=== PATIENT | male | born 1955 | race Caucasian/White ===

== ENCOUNTER 2021-01-08 08:10 | Emergency (ER) | payer OTHER ==
[2021-01-08] MEDS ORDERED: NA CHLORIDE 0.9% 1,000 ML ONE (09:13)
[2021-01-08 09:19] LABS: Absolute Lymphocytes (CBC) 2.1 K/uL (0.7-4.9); Basophils % 1.2 % (0-1.3); Hematocrit 44.3 % (39.6-49.0); Lymphocytes % 17.3 % (15.3-44.8)
[2021-01-08 09:25] LABS: Protime INR 1.13
[2021-01-08] MEDS ORDERED: ONDANSETRON 4 MG/2 ML VIAL ONE (09:31)
--- NOTE | 2021-01-08 09:34 | RAD REPORT ---
EXAM DESCRIPTION: Jonathan Single View01/08/2021 9:22 am CLINICAL HISTORY: Cough COMPARISON: 2019 FINDINGS: The lungs appear clear of acute infiltrate. The heart is normal size IMPRESSION: No acute abnormalities displayed
[2021-01-08 09:38] LABS: ALT/SGPT 65 U/L (12-78); AST/SGOT 47 U/L (15-37); Alkaline Phosphatase 86 U/L (45-117); BUN Blood Urea Nitrogen 18 mg/dL (7-18); Bicarbonate 25 mmol/L (21-32); Bilirubin Direct 0.3 mg/dL (0-0.2); Bilirubin Total 1.4 mg/dL (0.2-1.0); Glucose Level 153 mg/dL (74-106); Lipase 90 U/L (73-393); Magnesium 2.1 mg/dL (1.8-2.4); NT PRO-BNP 184 pg/mL (<125); Potassium 4.1 mmol/L (3.5-5.1); Protein, Total 8.1 g/dL (6.4-8.2); Sodium Level 137 mmol/L (136-145); Troponin (Emerg Dept Use Only) < 0.02 ng/mL (0.0-0.045)
[2021-01-08 10:36] LABS: SARS-COV-2 RT PCR NEGATIVE (NEGATIVE)
--- NOTE | 2021-01-08 11:01 | ER ---
Nurse's Notes [facility] Name: Felton Block Age: 65 yrs Sex: Male : 1955 Arrival Date: 01/08/2021 Time: 08:12 Bed 2 Private MD: Daryl Jacobo Diagnosis: Zoster without complications;Weakness Presentation: 01/08 08:18 Chief complaint: N/V/D, fatigue, chills, and rash on face x 3 days. Coronavirus screen: hb Client presents with at least one sign or symptom that may indicate coronavirus-19. Standard/surgical mask placed on the client. Provider contacted for isolation considerations. Ebola Screen: No symptoms or risks identified at this time. Initial Sepsis Screen: Does the patient meet any 2 criteria? No. Patient's initial sepsis screen is negative. Does the patient have a suspected source of infection? No. Patient's initial sepsis screen is negative. Risk Assessment: Do you want to hurt yourself or someone else? Patient reports no desire to harm self or others. Onset of symptoms was January 06, 2021. 08:18 Method Of Arrival: Ambulatory 08:18 Acuity: ANDREI 3 hb Historical: - Allergies: 08:20 No Known Allergies; hb - Immunization history:: Adult Immunizations up to date. - Social history:: Smoking status: Patient denies any tobacco usage or history of. Screenin:25 Abuse screen: Denies threats or abuse. Denies injuries from another. Nutritional sv screening: No deficits noted. Tuberculosis screening: No symptoms or risk factors identified. Fall Risk None identified. Assessment: 09:00 General: Appears in no apparent distress. comfortable, well groomed, well developed, sv Behavior is calm, cooperative, appropriate for age. General: Reports chills for 2-3 days, feeling ill for 2-3 days, fatigue for 2-3 days. Pain: Denies pain. Neuro: Level of Consciousness is awake, alert, obeys commands, Oriented to person, place, time, situation, Gait is steady, Speech is normal. Cardiovascular: Patient's skin is warm and dry. Rhythm is sinus rhythm. Respiratory: Airway is patent Respiratory effort is even, unlabored, Respiratory pattern is regular, symmetrical. GI: Abdomen is round Reports intolerance of food, nausea, vomiting. Derm: Skin is intact, Skin is pink, warm \T\ dry. Rash noted that is red, raised, vesicular, on forehead Pt reports that he got referred to a neurologist but hasn't been able to see one just yet. 10:20 Reassessment: Patient appears in no apparent distress at this time. Patient and/or sv family updated on plan of care and expected duration. Pain level reassessed. Patient is alert, oriented x 3, equal unlabored respirations, skin warm/dry/pink. 11:22 Reassessment: Patient appears in no apparent distress at this time. Patient and/or sv family updated on plan of care and expected duration. Pain level reassessed. Patient is alert, oriented x 3, equal unlabored respirations, skin warm/dry/pink. Patient states feeling better. Patient states symptoms have improved. Vital Signs: 08:18 BP 150 / 98; Pulse 68; Resp 16; Temp 98.3; Pulse Ox 100% on R/A; Pain 8/10; hb 09:30 BP 161 / 86; Pulse 76; Resp 13; Pulse Ox 99% on R/A; sv 11:00 BP 170 / 99; Pulse 77; Resp 18; Pulse Ox 99% ; sv ED Course: 08:12 Patient arrived in ED. as 08:12 Daryl Jacobo DO is Private Physician. as 08:20 Triage completed. hb 08:20 Arm band placed on. hb 08:22 Kalani Raza, RN is Primary Nurse. sv 08:24 Marv Arauz MD is Attending Physician. jordana 08:25 Patient has correct armband on for positive identification. Bed in low position. Call sv light in reach. Door closed. Head of bed elevated. 08:30 Awaiting ED provider evaluation. sv 09:00 XRAY Chest (1 view) In Process Unspecified. EDMS 09:05 First set of blood cultures drawn by me. Inserted saline lock: 20 gauge in left sv antecubital area, using aseptic technique. Blood collected. Flushed left antecubital with 5 ml normal saline. 09:15 Second set of blood cultures drawn by me. sv 09:21 Awaiting ED provider evaluation. sv 09:21 EKG done, by ED staff, reviewed by Marv Arauz MD. dh3 10:06 Troponin (emerg Dept Use Only) Sent. sv 10:06 PT-INR Sent. sv 10:06 NT PRO-BNP Sent. sv 10:06 Magnesium Sent. sv 10:06 LFT's Sent. sv 10:06 CBC with Diff Sent. sv 10:06 Basic Metabolic Panel Sent. sv 10:16 Awaiting ED provider evaluation. sv 10:21 ED physician to see patient. sv 10:58 Daryl Jacobo DO is Referral Physician. jordana 10:59 Calixto Benoit MD is Referral Physician. jordana 11:22 No provider procedures requiring assistance completed. IV discontinued, intact, sv bleeding controlled, No redness/swelling at site. Pressure dressing applied. Administered Medications: 09:17 Drug: NS 0.9% 1000 ml Route: IV; Rate: 1 bolus; Site: left antecubital; sv 11:21 Follow up: Response: No adverse reaction; IV Status: Completed infusion; IV Intake: sv 1000ml 09:18 Drug: Zofran (Ondansetron) 4 mg Route: IVP; Site: left antecubital; sv 10:06 Follow up: Response: No adverse reaction sv 11:00 Drug: Valtrex 1000 mg Route: PO; sv 11:21 Follow up: Response: No adverse reaction; Marked relief of symptoms; Nausea is decreasedsv Intake: 11:21 IV: 1000ml; Total: 1000ml. sv Outcome: 11:00 Discharge ordered by . jordana 11:22 Discharged to home ambulatory. sv 11:22 Condition: stable 11:22 Discharge instructions given to patient, Instructed on discharge instructions, follow up and referral plans. medication usage, Demonstrated understanding of instructions, follow-up care, medications, Prescriptions given X 3. 11:23 Patient left the ED. sv Signatures: Dispatcher [employer] Kalani Saldivar RN RN sv Anderson, Corey, MD MD cha Martinez, Amelia as Baxter, Heather, RN RN hb Herrera, Deanna [facility] Corrections: (The following items were deleted from the chart) 10:18 09:00 Derm: Skin is intact, Skin is pink, warm \T\ dry. sv sv 10:18 09:00 General: Reports feeling ill for 2-3 days, fatigue for 2-3 days, sv sv 10:19 09:00 Derm: Skin is intact, Skin is pink, warm \T\ dry. Rash noted that is red, raised, sv vesicular, on forehead sv
--- NOTE | 2021-01-08 11:01 | EDPHYS ---
Physician Documentation [facility] Name: Felton Block Age: 65 yrs Sex: Male : 1955 Arrival Date: 01/08/2021 Time: 08:12 Bed 2 Private MD: Donnell [facility] ED Physician Marv Arauz HPI: 01/08 10:51 This 65 yrs old Male presents to ER via Ambulatory with complaints of jordana Decreased Appetite, Fatigue. 10:51 The patient's rash thought to be caused by Dermatitis. The rash is located on the face jordana and forehead. The rash can be described as erythematous, raised. Onset: The symptoms/episode began/occurred 3 day(s) ago. Associated signs and symptoms: Pertinent positives: burning sensation, itching. Severity of symptoms: At their worst the symptoms were mild in the emergency department the symptoms. right zoster, opththalmic. Historical: - Allergies: 08:20 No Known Allergies; hb - Immunization history:: Adult Immunizations up to date. - Social history:: Smoking status: Patient denies any tobacco usage or history of. ROS: 10:56 Constitutional: Negative for fever, chills, and weight loss, Eyes: Negative for injury, jordana pain, redness, and discharge, ENT: Negative for injury, pain, and discharge, Neck: Negative for injury, pain, and swelling, Cardiovascular: Negative for chest pain, palpitations, and edema, Respiratory: Negative for shortness of breath, cough, wheezing, and pleuritic chest pain, Abdomen/GI: Negative for abdominal pain, nausea, vomiting, diarrhea, and constipation, Back: Negative for injury and pain, : Negative for injury, bleeding, discharge, and swelling, MS/Extremity: Negative for injury and deformity, Neuro: Negative for headache, weakness, numbness, tingling, and seizure, Psych: Negative for depression, anxiety, suicide ideation, homicidal ideation, and hallucinations, Allergy/Immunology: Negative for hives, rash, and allergies, Endocrine: Negative for neck swelling, polydipsia, polyuria, polyphagia, and marked weight changes, Hematologic/Lymphatic: Negative for swollen nodes, abnormal bleeding, and unusual bruising. 10:56 Skin: Positive for erythema, rash, of the top of head, forehead, right cheek, right ear and right orthodox. Exam: 10:56 Constitutional: This is a well developed, well nourished patient who is awake, alert, jordana and in no acute distress. Eyes: Pupils equal round and reactive to light, extra-ocular motions intact. Lids and lashes normal. Conjunctiva and sclera are non-icteric and not injected. Cornea within normal limits. Periorbital areas with no swelling, redness, or edema. ENT: Nares patent. No nasal discharge, no septal abnormalities noted. Tympanic membranes are normal and external auditory canals are clear. Oropharynx with no redness, swelling, or masses, exudates, or evidence of obstruction, uvula midline. Mucous membranes moist. Neck: Trachea midline, no thyromegaly or masses palpated, and no cervical lymphadenopathy. Supple, full range of motion without nuchal rigidity, or vertebral point tenderness. No Meningismus. Chest/axilla: Normal chest wall appearance and motion. Nontender with no deformity. No lesions are appreciated. Cardiovascular: Regular rate and rhythm with a normal S1 and S2. No gallops, murmurs, or rubs. Normal PMI, no JVD. No pulse deficits. Respiratory: Lungs have equal breath sounds bilaterally, clear to auscultation and percussion. No rales, rhonchi or wheezes noted. No increased work of breathing, no retractions or nasal flaring. Abdomen/GI: Soft, non-tender, with normal bowel sounds. No distension or tympany. No guarding or rebound. No evidence of tenderness throughout. Back: No spinal tenderness. No costovertebral tenderness. Full range of motion. MS/ Extremity: Pulses equal, no cyanosis. Neurovascular intact. Full, normal range of motion. Neuro: Awake and alert, GCS 15, oriented to person, place, time, and situation. Cranial nerves II-XII grossly intact. Motor strength 5/5 in all extremities. Sensory grossly intact. Cerebellar exam normal. Normal gait. Psych: Awake, alert, with orientation to person, place and time. Behavior, mood, and affect are within normal limits. 10:56 Head/face: Noted is rash, swelling, that is mild, of the forehead, right eye, right ear and right orthodox. 11:04 ECG was reviewed by the Attending Physician. [facility] Vital Signs: 08:18 BP 150 / 98; Pulse 68; Resp 16; Temp 98.3; Pulse Ox 100% on R/A; Pain 8/10; hb 09:30 BP 161 / 86; Pulse 76; Resp 13; Pulse Ox 99% on R/A; sv 11:00 BP 170 / 99; Pulse 77; Resp 18; Pulse Ox 99% ; sv MDM: 08:24 Patient medically screened. jordana 11:03 Differential diagnosis: impetigo, varicella, allergic reaction. Differential Diagnosis jordana sepsis, flu. Data reviewed: vital signs, nurses notes, lab test result(s), EKG, radiologic studies, plain films. Data interpreted: groundwater monitoring technician: rate is 76 beats/min, rhythm is regular, Pulse oximetry: is not applicable for this patient encounter. Test interpretation: by ED physician or midlevel provider: ECG, plain radiologic studies. Counseling: I had a detailed discussion with the patient and/or guardian regarding: the historical points, exam findings, and any diagnostic results supporting the discharge/admit diagnosis, lab results, radiology results, the need for outpatient follow up, for definitive care, a family practitioner, a neurologist. 01/08 08:30 Order name: Basic Metabolic Panel [facility] 01/08 08:30 Order name: CBC with Diff [facility] 01/08 08:30 Order name: LFT's [facility] 01/08 08:30 Order name: Magnesium [facility] 01/08 08:30 Order name: NT PRO-BNP [facility] 01/08 08:30 Order name: PT-INR [facility] 01/08 08:30 Order name: Troponin (emerg Dept Use Only) [facility] 01/08 08:30 Order name: Lipase; Complete Time: 10:38 [facility] 01/08 08:30 Order name: Blood Culture Adult (2) [facility] 01/08 08:30 Order name: Basic Metabolic Panel; Complete Time: 10:38 EDMS 01/08 08:30 Order name: CBC with Automated Diff; Complete Time: 10:38 EDMS 01/08 08:30 Order name: Liver (Hepatic) Function; Complete Time: 10:38 EDMS 01/08 08:30 Order name: XRAY Chest (1 view); Complete Time: 10:38 [facility] 01/08 08:30 Order name: EKG; Complete Time: 08:31 [facility] 01/08 08:30 Order name: Cardiac monitoring; Complete Time: 09:22 [facility] 01/08 08:30 Order name: EKG - Nurse/Tech; Complete Time: 09: [facility] 01/08 08:30 Order name: IV Saline Lock; Complete Time: : [facility] 01/08 08:30 Order name: Labs collected and sent; Complete Time: : [facility] 01/08 08:30 Order name: O2 Per Protocol; Complete Time: : [facility] 01/08 08:30 Order name: O2 Sat Monitoring; Complete Time: 09: [facility] 01/08 08:30 Order name: Magnesium; Complete Time: 10:38 EDMS 01/08 08:30 Order name: NT PRO-BNP; Complete Time: 10:38 EDMS 01/08 08:30 Order name: Protime (+INR); Complete Time: 10:38 EDMS 01/08 08:31 Order name: Troponin (Emerg Dept Use Only); Complete Time: 10:38 EDMS 01/08 10:37 Order name: COVID-19/FLU A+B; Complete Time: 10:57 EDMS EC:04 Rate is 75 beats/min. Rhythm is regular. QRS Naselle is Normal. MO interval is normal. QRS jordana interval is normal. QT interval is normal. No Q waves. T waves are Normal. No ST changes noted. Clinical impression: Normal ECG and No evidence of ischemia. Interpreted by me. Reviewed by me. Administered Medications: 09:17 Drug: NS 0.9% 1000 ml Route: IV; Rate: 1 bolus; Site: left antecubital; sv 11:21 Follow up: Response: No adverse reaction; IV Status: Completed infusion; IV Intake: sv 1000ml 09:18 Drug: Zofran (Ondansetron) 4 mg Route: IVP; Site: left antecubital; sv 10:06 Follow up: Response: No adverse reaction sv 11:00 Drug: Valtrex 1000 mg Route: PO; sv 11:21 Follow up: Response: No adverse reaction; Marked relief of symptoms; Nausea is decreasedsv Disposition: 01/08/21 11:00 Discharged to Home. Impression: Zoster without complications, Weakness. - Condition is Stable. - Discharge Instructions: Shingles, Weakness, Shingles, [id number], Fatigue, Weakness, [id number]. - Prescriptions for gabapentin 300 mg Oral capsule - take 1 capsule by ORAL route 2 times per day; 40 capsule. Keflex 500 mg Oral Capsule - take 1 capsule by ORAL route every 6 hours for 10 days; 40 capsule. Valtrex 1 g Oral Tablet - take 1 tablet by ORAL route every 8 hours for 7 days; 21 tablet. - Medication Reconciliation Form, Thank You Letter, Antibiotic Education, Prescription Opioid Use form. - Follow up: Daryl Jacobo DO; When: 2 - 3 days; Reason: Recheck today's complaints, Continuance of care, Re-evaluation by your physician. Follow up: Calixto Benoit MD; When: 2 - 3 days; Reason: Recheck today's complaints, Re-evaluation by your physician. - Problem is new. - Symptoms have improved. Signatures: Dispatcher [employer] [facility] Kalani Raza RN RN Marv Wallace MD MD cha Baxter, Heather, RN RN Corrections: (The following items were deleted from the chart) 09:54 08:31 CORONAVIRUS+MR.LAB.BRZ ordered. [facility] EDMS 09:54 08:31 Influenza Screen (A \T\ B)+BA.LAB.BRZ ordered. [facility] EDMS 11:23 11:00 01/08/2021 11:00 Discharged to Home. Impression: Zoster without complications; sv Weakness. Condition is Stable. Forms are Medication Reconciliation Form, Thank You Letter, Antibiotic Education, Prescription Opioid Use. Follow up: Daryl Jacobo; When: 2 - 3 days; Reason: Recheck today's complaints, Continuance of care, Re-evaluation by your physician. Follow up: Calixto Benoit; When: 2 - 3 days; Reason: Recheck today's complaints, Re-evaluation by your physician. Problem is new. Symptoms have improved. jordana
[2021-01-08] MEDS ORDERED: VALACYCLOVIR 500 MG TAB ONE (11:20)
[2021-01-08 11:28] VITALS: TEMP 98.3
[2021-01-08 11:29] VITALS: O2SAT 99
[2021-01-08 11:31] VITALS: BP 170/99
--- NOTE | 2021-01-09 11:57 | EKG ---
Test Date: 2021-01-08 Test Time: 09:14:04 Brim Stiffener: JERARDO MEASUREMENT RESULTS: Intervals: Rate: 75 NJ: 182 QRSD: 90 QT: 400 QTc: 446 [place]: P: 89 NJ: 182 QRS: -20 T: 50 INTERPRETIVE STATEMENTS: Normal sinus rhythm Normal ECG No previous ECG available for comparison Electronically Signed On 01-09-21 11:54:04 EXTRACTION OPERATOR by Simon Olivares
== END 2021-01-08 11:23 | disposition home or self-care (01) ==
LOC: ER 08:10
DX: B02.9 Zoster without complications (principal); R53.1 Weakness; Z20.822 Contact with and (suspected) exposure to COVID-19; R53.83 Other fatigue
CPT/HCPCS: 87040 ×2; 85025; 80048; 36415; 83735; 85610; 80076; 84484; 83690; 83880; 0240U; 71045; J7030; J2405; 93005; 96361; 96374; 99284